=== PATIENT | female | born 2000 | race Two or more races ===

== ENCOUNTER 2021-03-10 14:34 | Inpatient (IN) | payer OTHER ==
[~2021-03-10] VITALS: Ht 160 cm; Wt 80.7 kg
[2021-03-10] MEDS ORDERED: PRENATAL CAPLE1 EAC1 (15:04)
== END 2021-03-12 14:15 | disposition home or self-care (01) | DRG 807 ==
LOC: OB/GYN 14:34 → LDR 14:34 → OB/GYN 21:13
PROVIDERS: ADMIT Obstetrics & Gynecology; ATTEND Obstetrics & Gynecology
PROC: 10E0XZZ Delivery of Products of Conception, External Approach (ICD-10-PCS; principal; 2021-03-10)
PROC: 0W8NXZZ Division of Female Perineum, External Approach (ICD-10-PCS; 2021-03-10)
PROC: 4A1HXCZ Monitoring of Products of Conception, Cardiac Rate, External Approach (ICD-10-PCS; 2021-03-10)
DX: O80 Encounter for full-term uncomplicated delivery (principal); Z37.0 Single live birth; Z3A.37 37 weeks gestation of pregnancy; Z20.822 Contact with and (suspected) exposure to COVID-19